=== PATIENT | female | born 2000 | race African-American/Black ===

== ENCOUNTER → 2021-01-07 | Outpatient (CLI) | payer BC ==
--- NOTE | 2021-01-07 21:24 | CT ---
EXAMINATION TYPE: CT sinus wo con DATE OF EXAM: 01/07/2021 COMPARISON: NONE HISTORY: chronic sinus congestion CT DLP: 435.9 mGycm. Automated Exposure Control for Dose Reduction was Utilized. TECHNIQUE: CT scan of the sinuses is performed without contrast, axial images are obtained, coronal r eformatted images are also reviewed. FINDINGS: Partial opacification of the ethmoid sinuses bilaterally greatest left posterior aspect. Th ere is a dominant single sphenoid sinus with heterogeneous hyperdense and partially calcified materia l causing wall bulging without destruction. Tiny mucous retention cyst or polyp medial left maxillary sinus coronal image 25. Frontal and maxillary sinuses are otherwise grossly clear. The ostiomeatal c omplex is patent bilaterally on the coronal images. Visualized portion of mastoid air cells show no abnormal opacification. The globes are intact bilate rally. IMPRESSION: Prominent expanding sphenoid sinus disease. Consider direct visualization or surgical ex ploration to further evaluate.
== END | disposition home or self-care (01) ==
LOC: RADCTMAIN 17:01
PROVIDERS: ATTEND Otolaryngology
DX: J32.9 Chronic sinusitis, unspecified (principal)
CPT/HCPCS: 70486

== ENCOUNTER 2021-03-04 08:19 | Day surgery (SDC) | payer BC ==
[2021-03-03 11:15] VITALS: BMI 27.8
[~2021-03-04 08:19] MED LIST: DEXAMETHASONE SOD PHOSPHATE 4 MG/ML 1 ML VIAL IV PRN; FAMOTIDINE 20 MG/2 ML VIAL IV PRN; ONDANSETRON 4 MG/2 ML VIAL IVP PRN
[2021-03-04] MEDS ORDERED: ONDANSETRON 4 MG/2 ML VIAL IVP ONE ×2 (08:34→11:13)
[2021-03-04] MEDS ORDERED: LACTATED RINGERS 1,000 ML IV SCH (08:34)
[2021-03-04] MEDS ORDERED: SCOPOLAMINE 1.5MG/72HR PATCH TRANSDERM ONE (08:34)
[2021-03-04] MEDS ORDERED: HYDROmorphone 0.5 MG/0.5 ML SYRINGE IVP PRN (08:34)
[2021-03-04] MEDS ORDERED: DEXAMETHASONE SOD PHOSPHATE 4 MG/ML 1 ML VIAL IV ONE ×2 (08:34)
[2021-03-04] MEDS ORDERED: LIDOCAINE 1% (10MG/ML) FOR IV START INTRADERMA PRN (08:34)
[2021-03-04] MEDS: OXYMETAZOLINE 0.05% NASL SPRAY 1 SPRAY BOTTLE EA NOSTRIL PRN ×5 (08:50→09:10)
[2021-03-04] MEDS: DEXAMETHASONE SOD PHOSPHATE 4 MG/ML 1 ML VIAL IV ONE ×2 (09:07→09:08)
[2021-03-04] MEDS: ONDANSETRON 4 MG/2 ML VIAL IVP ONE ×2 (09:08→09:09)
[2021-03-04] MEDS ORDERED: LIDOCAINE 1% INJ 10MG/ML (20 ML MDV) ONE (09:25)
[2021-03-04] MEDS ORDERED: PROPOFOL 10 MG/ML 20 ML VIAL IV ONE (09:25)
[2021-03-04] MEDS ORDERED: PHENYLEPHRINE-0.9% NACL SYG 1,000 MCG/10 ML SYRINGE ONE (09:25)
[2021-03-04] MEDS ORDERED: fentaNYL (PF) 50 MCG/ML 2 ML AMP ONE (09:25)
[2021-03-04] MEDS ORDERED: SUCCINYLCHOLINE CHLORIDE 100 MG/5 ML SYR IV ONE (09:25)
[2021-03-04] MEDS ORDERED: MIDAZOLAM 2 MG/2 ML VIAL ONE (09:25)
[2021-03-04] MEDS ORDERED: LIDOCAINE 1%-EPI 1:100,000 20 ML VIAL SQ ONE (09:48)
[2021-03-04] MEDS ORDERED: BACITRACIN ZINC 500 UNIT/GM OINT 28.4 GM TUBE TOPICAL ONE (09:56)
--- NOTE | 2021-03-04 10:47 | P.OP ---
Date of Procedure: 03/04/21 Preoperative Diagnosis: Deviated nasal septum Inferior turbinate hypertrophy Chronic sinusitis Postoperative Diagnosis: Same Procedure(s) Performed: Septoplasty Outfracture and submucous resection inferior turbinates Bilateral endoscopic sinus surgery including bilateral maxillary antrostomy with removal of tissue from the left maxillary sinus, bilateral anterior and posterior ethmoidectomy and bilateral sphenoidotomy with removal of tissue from the sphenoid sinuses Anesthesia: PATRICIO Surgeon: Channing Cordova Estimated Blood Loss (ml): 10 Pathology: other (Nasal septal bone and cartilage, sinus contents) Condition: stable Disposition: PACU Indications for Procedure: This 20-year-old white female has chronic nasal airway obstruction and congestion. She has ALLERGIES but also chronic sinusitis based on computed tomography scan Operative Findings: Septum deviated to the left with inferior turbinate hypertrophy bilaterally. Chronic sinusitis involving the maxillary ethmoid and sphenoid sinuses- the sphenoid sinuses had mucoid fluid as well as polypoid tissue diffusely Description of Procedure: The patient was brought into the operative suite and placed in a supine position. The patient underwent induction of general anesthesia with oral endotracheal intubation without difficulty. The patient was prepped and draped in the usual aseptic fashion with the orbits in the operating field for monitoring to the case and the computed tomography scan was on the computer screen for review throughout the case. 1% lidocaine with 1 :100,000 epinephrine was infused submucosally into both sides of the nasal septum as well as the lateral nasal wall and anterior tips of the middle turbinates. While this was taking vasoconstrictive effect the inferior turbinates were infractured with [place] elevator and partial submucous resection of the inferior turbinates was performed with a portion of the submucosal soft tissue and the inferior turbinate bone removed with Coblation device. The inferior turbinates were then outfractured with the [place] elevator. A left hemitransfixion incision was then made with the mucoperichondrial and mucoperiosteal flap on the left elevated. The bony cartilaginous junction was disarticulated and the mucoperiosteal flap on the right was elevated. Bony nasal septal deformities were removed with Ashanti forceps and an inferior cartilaginous strip was removed leaving a full 1.5 cm caudal strut. Checking intranasally this corrected the nasoseptal deformities and the hemitransfixion incision was closed with a running 4-0 chromic suture. Full 0 endoscopic examination is performed bilaterally. Beginning on the left, the middle turbinate was medialized. The maxillary ostium was located with a ballpoint probe and an infundibulotomy was performed followed by uncinectomy. The maxillary antrostomy was enlarged at the expense of the anterior and posterior fontanelle taking care anteriorly not to injure the lacrimal bone. The maxillary sinus was evaluated with 30 and 70 endoscope .[Abnormal appearing tissue was removed from the maxillary sinus on the left]. Anterior and posterior ethmoidectomy were then performed from anterior to posterior to the level of the skull base. The roof of the anterior ethmoid air cells were then cleaned from posterior to anterior using up-biting Blakesley forceps.. Sphenoidotomy was then performed of the sphenoid sinus using #8 suction and microdebrider. The sphenoid sinus was then explored with 0 endoscope.[Abnormal tissue was removed from the sphenoid sinus]. Attention was then turned to the right where the procedures were followed as they had been on the left with the exception of no tissue removed from the right maxillary sinus. [Nasopore nasal dressing was placed in the middle meatus bilaterally under direct visualization]. Bilateral Guzman airway splints coated with bacitracin ointment were placed and sutured transseptally with a 4-0 nylon suture. The patient was suctioned in oral gastric fashion and was allowed to emerge from general anesthesia having tolerated procedure well and was extubated in the operating suite and transferred to the postoperative recovery area in satisfactory condition.
[2021-03-04 11:01] VITALS: TEMP 97.2
[2021-03-04 13:32] VITALS: BP 112/77; PULSE 111; RESP 18
== END 2021-03-04 13:30 | disposition home or self-care (01) ==
LOC: OR 08:19
PROVIDERS: ATTEND Otolaryngology
DX: J34.2 Deviated nasal septum (principal); J32.9 Chronic sinusitis, unspecified; J34.3 Hypertrophy of nasal turbinates
CPT/HCPCS: 31259; 31267; 31288; 30520; 81025; J2250; J1100; J2405; J0690; J2001; J3010; J2370; J0330; J2704; J1170; 88300; 88305

== ENCOUNTER 2023-09-30 12:37 | Emergency (ER) | payer BC ==
--- NOTE | 2023-09-30 14:20 | ED ---
Female Urogenital HPI - General Source: patient, RN notes reviewed Mode of arrival: ambulatory Limitations: no limitations <Jinny Coleman - Last Filed: 09/30/23 14:18> - General Source: RN notes reviewed, old records reviewed Mode of arrival: ambulatory Limitations: no limitations - History of Present Illness MD Complaint: dysuria, pelvic pain -: days(s) Location: perineum Radiation: suprapubic Severity: moderate Quality: sharp, dull Consistency: intermittent Improves with: none Patient : No Associated Symptoms: hematuria - Related Data Sexually active: No <Tayo Allan - Last Filed: 10/12/23 20:32> - General Chief complaint: Vaginal Bleeding Stated complaint: Post- bleeding(4 weeks) Time Seen by Provider: 09/30/23 14:18 - History of Present Illness Initial comments: Quick [id number] female who is 4 weeks presenting with vaginal bleeding x 1 week. States she had some vaginal spotting for about 2 weeks , then resolved. About 1 week ago she began to bleed again and a few days ago started noticing large clots. She was recently treated at an urgent care for a UTI. She she is also complaining of mild dysuria. Denies fever, chills, abdominal pain, nausea, vomiting. States she is visiting from [place] and her OB instructed her to come in for pelvic ultrasound to ensure there is nothing retained in uterus. (Jinny Coleman) This is a 22-year-old female 4 weeks with vaginal bleeding. Patient said some persistent bleeding which initially resolved and then is now restarted. Patient denies sexual activity no significant abdominal pain no symptoms of lightheadedness dizziness or weakness (Tayo Allan) - Related Data Home Medications Medication Instructions Recorded Confirmed Escitalopram [Lexapro] 20 mg PO DAILY 03/03/21 03/04/21 Medroxyprogesterone Acetate 0 mg SQ Q90D 03/03/21 03/04/21 [Depo-Subq Provera 104] Allergies Allergy/AdvReac Type Severity Reaction Status Date / Time No Known Allergies Allergy Verified 09/30/23 13:14 Review of Systems ROS Other: All systems not noted in ROS Statement are negative. <Jinny Coleman - Last Filed: 09/30/23 14:18> ROS Other: All systems not noted in ROS Statement are negative. <Tayo Allan - Last Filed: 10/12/23 20:32> ROS Statement: Those systems with pertinent positive or pertinent negative responses have been documented in the HPI. Past Medical History Past Medical History: Asthma History of Any Multi-Drug Resistant Organisms: None Reported Past Surgical History: No Surgical Hx Reported Past Anesthesia/Blood Transfusion Reactions: No Reported Reaction Past Psychological History: Anxiety, Depression Smoking Status: Never smoker Past Alcohol Use History: None Reported Past Drug Use History: None Reported - Past Family History Mother Family Medical History: No Reported History <Jinny Coleman - Last Filed: 09/30/23 14:18> General Exam Limitations: no limitations <Jinny Coleman - Last Filed: 09/30/23 14:18> General appearance: alert, in no apparent distress Head exam: Present: atraumatic, normocephalic, normal inspection Eye exam: Present: normal appearance, PERRL, EOMI. Absent: scleral icterus, conjunctival injection, periorbital swelling ENT exam: Present: normal exam, mucous membranes moist Neck exam: Present: normal inspection. Absent: tenderness, meningismus, lymphadenopathy Respiratory exam: Present: normal lung sounds bilaterally. Absent: respiratory distress, wheezes, rales, rhonchi, stridor Cardiovascular Exam: Present: regular rate, normal rhythm, normal heart sounds. Absent: systolic murmur, diastolic murmur, rubs, gallop, clicks GI/Abdominal exam: Present: soft, normal bowel sounds. Absent: distended, tenderness, guarding, rebound, rigid Extremities exam: Present: normal inspection, full ROM, normal capillary refill. Absent: tenderness, pedal edema, joint swelling, calf tenderness Back exam: Present: normal inspection Neurological exam: Present: alert, oriented X3, CN II-XII intact Psychiatric exam: Present: normal affect, normal mood Skin exam: Present: warm, dry, intact, normal color. Absent: rash <Tayo Allan - Last Filed: 10/12/23 20:32> - General Exam Comments Initial Comments: Visual Physical Exam Vital signs reviewed General: Well-appearing, nontoxic, no acute distress. Head: Normocephalic, atraumatic Eyes: PERRLA, EOMI ENT: Airway patent Chest: Nonlabored breathing Skin: No visual rash, normal skin tone Neuro: Alert and oriented 3 Musculoskeletal: No gross abnormalities (Noemy Colemanna) Course <JerrellTayo Hutton - Last Filed: 10/12/23 20:32> Vital Signs 09/30/23 09/30/23 13:11 16:39 Temperature 98 F 98.2 F Pulse Rate 104 H 91 Respiratory 20 18 Rate Blood Pressure 113/75 120/86 O2 Sat by Pulse 99 99 Oximetry - Reevaluation(s) Reevaluation #1: Medical records reviewed (Tayo Allan) Reevaluation #2: Symptoms improved (Tayo Allan) Reevaluation #3: Patient informed of results questions answered (Tayo Allan) Reevaluation #4: Was pt. sent in by a medical professional or institution (PATRICK Hanna, DECOMMISSIONING WELL SITE MANAGER, urgent care, hospital, or fpc...) When possible be specific @ -no Did you speak to anyone other than the patient for history (EMS, parent, family, police, friend...)? What history was obtained from this source @ -no Did you review nursing and triage notes (agree or disagree)? Why? @ -agree Are old charts reviewed (outside hosp., previous admission, EMS record, old EKG, old radiological studies, urgent care reports/EKG's, fpc records)? Report findings @ -yes Differential Diagnosis (chest pain, altered mental status, abdominal pain women, abdominal pain men, vaginal bleeding, weakness, fever, dyspnea, syncope, headache, dizziness, GI bleed, back pain, seizure, CVA, palpatations, mental health, musculoskeletal)? @ -prior EKG interpreted by me (3pts min.). @ -no X-rays interpreted by me (1pt min.). @ -no CT interpreted by me (1pt min.). @ -no U/S interpreted by me (1pt. min.). @ -yes negative for acute disease What testing was considered but not performed or refused? (CT, X-rays, U/S, labs)? Why? @ -none What meds were considered but not given or refused? Why? @ -none Did you discuss the management of the patient with other professionals ( professionals i.e. PATRICK Hanna, DECOMMISSIONING WELL SITE MANAGER, lab, RT, psych nurse, social work specialist, prison officer, teacher, correctional security officer, rn case manager hospice)? Give summary @ -no Was smoking cessation discussed for >3mins.? @ -no Were there social determinants of health that impacted care today? How? (Homelessness, low income, unemployed, alcoholism, drug addiction, transportation, low edu. Level, literacy, decrease access to med. care, retirement, rehab)? @ -none Was there de-escalation of care discussed even if they declined (Discuss DNR or withdrawal of care, Hospice)? DNR status @ -no What co-morbidities impacted this encounter? (DM, HTN, Smoking, COPD, CAD, Cancer, CVA, ARF, Chemo, Hep., AIDS, mental health diagnosis, sleep apnea, morbid obesity)? @ -none Was patient admitted / discharged? Hospital course, mention meds given and route, prescriptions, significant lab abnormalities, going to OR and other pertinent info. @ - 23 Female hemorrhage, no acute distress no significant laboratory abnormalities or hemoglobin. Patient can be discharged home Charge Was critical care preformed (if so, how long)? @ -no Undiagnosed new problem with uncertain prognosis? @ -no Drug Therapy requiring intensive monitoring for toxicity (Heparin, Nitro, Insulin, Cardizem)? @ -no Were any procedures done? @ -no Diagnosis/symptom? @ -Pulm hemorrhage Acute, or Chronic, or Acute on Chronic? @ -Acute Uncomplicated (without systemic symptoms) or Complicated (systemic symptoms)? @ -Complicated Side effects of treatment? @ -no Exacerbation, Progression, or Severe Exacerbation? @ -exacerbation Poses a threat to life or bodily function? How? (Chest pain, USA, MA, pneumonia, PE, COPD, DKA, ARF, appy, cholecystitis, CVA, Diverticulitis, Homicidal, Suicidal, threat to staff... and all critical care pts) @ -yes significant post bleeding (Tayo Allan) Reevaluation #5: Differential Abdominal Pain Women: Appendicitis, Cholecystitis, diverticulosis, ischemic bowel, pancreatitis, hepatitis, UTI, gastroenteritis, AAA, incarcerated hernia, bowel obstruction, constipation, inflammatory bowel, hepatitis, peptic ulcer disease, splenic infarction, perforated viscus, vulvitis, ovarian torsion, PID, kidney stone, placenta abruption, this is not meant to be an all-inclusive list (Tayo Allan) Medical Decision Making <Jinny Coleman - Last Filed: 09/30/23 14:18> - Lab Data Result diagrams: 09/30/23 15:24 09/30/23 15:24 - Radiology Data Radiology results: report reviewed (US is negative for significant acute disease or retained products), image reviewed <Tayo Allan - Last Filed: 10/12/23 20:32> - Medical Decision Making I completed the quick note portion of this chart signed Jinny Coleman PA-C (Jinny Coleman) 23 Female hemorrhage, no acute distress no significant laboratory abnormalities or hemoglobin. Patient can be discharged home (Tayo Allan) - Lab Data Lab Results 09/30/23 09/30/23 09/30/23 Range/Units 15:24 15:24 15:24 WBC 6.5 (3.8-10.6) k/uL RBC 3.87 (3.80-5.40) m/uL Hgb 11.5 (11.4-16.0) gm/dL Hct 35.2 (34.0-46.0) % MCV 91.1 (80.0-100.0) fL MCH 29.7 (25.0-35.0) pg MCHC 32.6 (31.0-37.0) g/dL RDW 13.2 (11.5-15.5) % Plt Count 243 (150-450) k/uL MPV 8.2 Neutrophils % 33 % Lymphocytes % 53 % Monocytes % 4 % Eosinophils % 8 % Basophils % 0 % Neutrophils # 2.1 (1.3-7.7) k/uL Lymphocytes # 3.5 (1.0-4.8) k/uL Monocytes # 0.3 (0-1.0) k/uL Eosinophils # 0.5 (0-0.7) k/uL Basophils # 0.0 (0-0.2) k/uL Sodium 139 (137-145) mmol/L Potassium 3.9 (3.5-5.1) mmol/L Chloride 108 H (98-107) mmol/L Carbon Dioxide 26 (22-30) mmol/L Anion Gap 5 mmol/L BUN 7 (7-17) mg/dL Creatinine 0.49 L (0.52-1.04) mg/dL Est GFR (CKD-EPI)AfAm >90 (>60 ml/min/1.73 sqM) Est GFR (CKD-EPI)NonAf >90 (>60 ml/min/1.73 sqM) Glucose 76 (74-99) mg/dL Calcium 9.2 (8.4-10.2) mg/dL Total Bilirubin 0.4 (0.2-1.3) mg/dL AST 36 (14-36) U/L ALT 39 H (4-34) U/L Alkaline Phosphatase 104 (38-126) U/L Total Protein 6.8 (6.3-8.2) g/dL Albumin 4.3 (3.5-5.0) g/dL Urine Color Light Red Urine Appearance Cloudy H (Clear) Urine pH 7.0 (5.0-8.0) Ur Specific [place] 1.016 (1.001-1.035) Urine Protein 1+ H (Negative) Urine Glucose (UA) Negative (Negative) Urine Ketones Negative (Negative) Urine Blood Large H (Negative) Urine Nitrite Negative (Negative) Urine Bilirubin Negative (Negative) Urine Urobilinogen <2.0 (<2.0) mg/dL Ur Leukocyte Esterase Moderate H (Negative) Urine RBC >182 H (0-5) /hpf Urine WBC 18 H (0-5) /hpf Ur Squamous Epith Cells 13 H (0-4) /hpf Urine Mucus Rare H (None) /hpf Disposition <Jinny Coleman - Last Filed: 09/30/23 14:18> Is patient prescribed a controlled substance at d/c from ED?: No Time of Disposition: 16:00 <Tayo Allan - Last Filed: 10/12/23 20:32> Clinical Impression: Dysfunctional uterine bleeding, hemorrhage Disposition: HOME SELF-CARE Condition: Good Instructions (If sedation given, give patient instructions): Dysmenorrhea (ED) Referrals: Jewel Kent DO [Primary Care Provider] - 1-2 days
--- NOTE | 2023-09-30 14:59 | US ---
EXAMINATION TYPE: US pelvic complete DATE OF EXAM: 09/30/2023 COMPARISON: NONE CLINICAL INDICATION: Female, 22 years old with history of vaginal bleeding; Heavy vaginal bleeding wi th clots 4-5 days. 4 weeks post TECHNIQUE: Transabdominal (TA). Date of LMP: unknown EXAM MEASUREMENTS: Uterus: 8.0 x 6.6 x 7.8 cm Endometrial Stripe: 0.4 cm Right Ovary: 4.7 x 2.2 x 2.8 cm Left Ovary: 4.4 x 2.0 x 3.0 cm 1. Uterus: Anteverted 2. Endometrium: appears wnl as visualized 3. Right Ovary: wnl 4. Left Ovary: paraovarian cyst = 2.4 x 1.3 x 2.2cm Spectral, color and waveform doppler imaging shows good arterial and venous flow within the ovaries ; there is no evidence for ovarian torsion. 5. Bilateral Adnexa: wnl 6. Posterior cul-de-sac: wnl IMPRESSION: 1. No evidence for retained products of conception. Endometrium is within normal limits for thicknes s.. 2. Appropriate arterial and venous spectral waveforms to the ovaries.
[2023-09-30 15:59] LABS: Basophils % (A) 0 %; Eosinophils # (A) 0.5 k/uL (0-0.7); Eosinophils % (A) 8 %; HCT 35.2 % (34.0-46.0); HGB 11.5 gm/dL (11.4-16.0); Lymphocytes # (A) 3.5 k/uL (1.0-4.8); Lymphocytes % (A) 53 %; MCH 29.7 pg (25.0-35.0); MCHC 32.6 g/dL (31.0-37.0); MCV 91.1 fL (80.0-100.0); Mean Platelet Volume 8.2; Monocytes # (A) 0.3 k/uL (0-1.0); Monocytes % (A) 4 %; Neutrophils # (A) 2.1 k/uL (1.3-7.7); Neutrophils % (A) 33 %; Platelet Count 243 k/uL (150-450); RBC 3.87 m/uL (3.80-5.40); RDW 13.2 % (11.5-15.5); WBC 6.5 k/uL (3.8-10.6)
[2023-09-30 16:06] LABS: ALT 39 U/L (4-34); AST 36 U/L (14-36); African American GFR (CKD) >90 (>60 ml/min/1.73 sqM); Albumin 4.3 g/dL (3.5-5.0); Alkaline Phosphatase 104 U/L (38-126); Anion Gap 5 mmol/L; Blood Urea Nitrogen 7 mg/dL (7-17); Calcium 9.2 mg/dL (8.4-10.2); Carbon Dioxide 26 mmol/L (22-30); Chloride 108 mmol/L (98-107); Glucose 76 mg/dL (74-99); Non-African American GFR(CKD) >90 (>60 ml/min/1.73 sqM); Potassium 3.9 mmol/L (3.5-5.1); Sodium 139 mmol/L (137-145); Total Bilirubin 0.4 mg/dL (0.2-1.3); Total Protein 6.8 g/dL (6.3-8.2)
[2023-09-30 16:08] LABS: Appearance,Urine Cloudy (Clear); Bilirubin,Urine Negative (Negative); Blood,Urine Large (Negative); Color,Urine Light Red; Glucose,Urine (UA) Negative (Negative); Ketones,Urine Negative (Negative); Leukocyte Esterase,Urine Moderate (Negative); Mucus,Urine Rare /hpf; Nitrite,Urine Negative (Negative); Protein,Urine 1+ (Negative); RBC,Urine >182 /hpf (0-5); Specific Gravity,Urine 1.016 (1.001-1.035); Squamous Epithelial Cell,Urine 13 /hpf (0-4); Urobilinogen,Urine <2.0 mg/dL (<2.0); WBC,Urine 18 /hpf (0-5)
[2023-09-30 16:45] VITALS: BP 120/86; PULSE 91; RESP 18; TEMP 98.2
== END 2023-09-30 16:58 | disposition home or self-care (01) ==
LOC: EC 12:37
DX: O72.2 Delayed and secondary postpartum hemorrhage (principal)
CPT/HCPCS: 36415; 76856; 80053; 81001; 85025; 93975; 99284